=== PATIENT | male | born 1980 ===

== ENCOUNTER 2018-01-08 10:36 | Emergency (ER) | payer OTHER ==
--- NOTE | 2018-01-08 11:29 | C.PDOC ---
History Of Present Illness 37 y/o male presents to ED with c/o pain and swelling to left knee pain for 2 days. Patient reports some pins and needles feeling. Pt took Ibuprofen with no significant relief. Patient denies trauma, calf pain or swelling, fever, weakness, back pain, dysuria or any other complaints at this time. Time Seen by Provider: 01/08/18 11:09 Chief Complaint (Nursing): Lower Extremity Problem/Injury History Per: Patient History/Exam Limitations: no limitations Onset/Duration Of Symptoms: Days Current Symptoms Are (Timing): Still Present Past Medical History Reviewed: Historical Data, Nursing Documentation, Vital Signs Vital Signs: Last Vital Signs Temp 98.8 F 01/08/18 16:10 Pulse 70 01/08/18 16:10 Resp 16 01/08/18 16:10 BP 116/84 01/08/18 16:10 Pulse Ox 99 01/08/18 16:10 - Medical History PMH: No Chronic Diseases Surgical History: No Surg Hx Family History: States: No Known Family Hx - Social History Hx Alcohol Use: Yes Hx Substance Use: No Review Of Systems Except As Marked, All Systems Reviewed And Found Negative. Constitutional: Negative for: Fever, Chills Musculoskeletal: Positive for: Leg Pain Skin: Negative for: Rash, Bruising Neurological: Negative for: Weakness, Numbness Physical Exam - Physical Exam Appears: Non-toxic, No Acute Distress Skin: Warm, Dry, No Rash Head: Atraumatic, Normacephalic Eye(s): bilateral: Normal Inspection, EOMI Oral Mucosa: Moist Neck: Normal ROM, Supple Chest: Symmetrical Respiratory: No Accessory Muscle Use Extremity: No Normal ROM (decreased secondary to pain), Tenderness (TTP to the superior knee), No Pedal Edema, No Calf Tenderness, Capillary Refill (<2 seconds), No Deformity, Other ((+) joint effusion) Extremity: Bilateral: Normal Color And Temperature Pulses: Left Dorsalis Pedis: Normal, Right Dorsalis Pedis: Normal Neurological/Psych: Oriented x3, Normal Motor, Normal Sensation ED Course And Treatment O2 Sat by Pulse Oximetry: 98 (RA) Pulse Ox Interpretation: Normal - Other Rad Knee XR X-Ray: Interpreted by Me, Viewed By Me Interpretation: no fx or dislocation Progress Note: Arthrocentisis to the left knee: Immediately prior to procedure a "time out" was called to verify the correct patient, procedure and site. Procedure: Knee was cleansed thoroughly and anesthetized. 85 cc of straw colored fluid was drawn from the knee. Patients condition remained stable throughout Emergency Department evaluation. Procedure preformed by Dr Blum and Ted Lozano. Case discussed with Dr Blum who evaluated results and agreed upon plan and discharge. On reassessment, patient is resting comfortably, and is in no acute distress. Pt states his knee feels much better. Patient was instructed to follow up with physician/clinic in 1-2 days for further evaluation. Disposition - Disposition Referrals: [facility] at [facility] [Outside] Disposition: HOME/ ROUTINE Disposition Time: 15:48 Condition: STABLE Additional Instructions: Use ice and anti-inflammatory medication, follow up with bone doctor in 1-2 days. 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 - Scribe Statement The provider has reviewed the documentation as recorded by the Migueibpam Macedo All medical record entries made by the Melissa were at my direction and personally dictated by me. I have reviewed the chart and agree that the record accurately reflects my personal performance of the history, physical exam, medical decision making, and the department course for this patient. I have also personally directed, reviewed, and agree with the discharge instructions and disposition.
[2018-01-08] MEDS ORDERED: Lidocaine 1% w Epi 1:100,000 Inj INJ ONE (11:53)
[2018-01-08 13:39] LABS: FLUID TYPE SYNOVIAL FLUID
[2018-01-08 13:56] LABS: FLUID CRYSTALS NEGATIVE (NEGATIVE)
[2018-01-08 14:46] LABS: SF GROSS APPEARANCE CLOUDY (CLEAR)
[2018-01-08 14:47] LABS: SYNOVIAL FLUID MONO/MACROPHAGE 1 % (0-0)
--- NOTE | 2018-01-08 16:09 | RAD ---
Date of service: 01/08/2018 PROCEDURE: Left Knee Radiographs. HISTORY: Pain. No history of recent/ related trauma provided COMPARISON: None. FINDINGS: BONES: Normal. No fracture. JOINTS: Normal. No osteoarthritis. JOINT EFFUSION: None. OTHER FINDINGS: None. IMPRESSION: Normal radiographs of the left knee.
[2018-01-08 16:17] VITALS: BP 116/84; PULSE 70; RESP 16; TEMP 98.8
[2018-01-11 03:02] VITALS: O2SAT 98
== END 2018-01-08 16:17 | disposition home or self-care (01) ==
LOC: C.ER 10:36
DX: M25.462 Effusion, left knee (principal)